=== PATIENT | male | born 1990 | race Two or more races ===

== ENCOUNTER 2016-12-25 09:18 | Emergency (ER) | payer SELFPAY ==
--- NOTE | 2016-12-25 09:43 | EDM.PDOC ---
ED HPI GENERAL MEDICAL PROBLEM - General Chief Complaint: General Stated Complaint: ENGROWN TOE NAIL Time Seen by Provider: 12/25/16 09:42 Source of Information: Reports: Patient - History of Present Illness INITIAL COMMENTS - FREE TEXT/NARRATIVE: HISTORY AND PHYSICAL: History of present illness: Patient presents with infected ingrown toenail on the right great toe Unable to express exudate with minimal pressure, exudate is cultured No fever nausea vomiting chills sweats Review of systems: As per history of present illness and below otherwise all systems reviewed and negative. Past medical history: As per history of present illness and as reviewed below otherwise noncontributory. Surgical history: As per history of present illness and as reviewed below otherwise noncontributory. Social history: No reported history of drug or alcohol abuse. Family history: As per history of present illness and as reviewed below otherwise noncontributory. Physical exam: HEENT: Atraumatic, normocephalic, pupils reactive, negative for conjunctival pallor or scleral icterus, mucous membranes moist, throat clear, neck supple, nontender, trachea midline. Lungs: Clear to auscultation, breath sounds equal bilaterally, chest nontender. Heart: S1S2, regular, negative for clicks, rubs, or JVD. Abdomen: Soft, nondistended, nontender. Negative for masses or hepatosplenomegaly. Negative for costovertebral tenderness. Pelvis: Stable nontender. Genitourinary: Deferred. Rectal: Deferred. Extremities: Atraumatic, negative for cords or calf pain. Neurovascular unremarkable. Neuro: Awake, alert, oriented. Cranial nerves II through XII unremarkable. Cerebellum unremarkable. Motor and sensory unremarkable throughout. Exam nonfocal. Right foot unaffected above the ankle obvious ingrown toenail lateral border able to express exudate or redness moderate tenderness entire limb neurovascularly intact Diagnostics: []1 culture Therapeutics: []Gram Rocephin IM Bactrim double strength by mouth twice a day #20 no refill Follow-up podiatry ER referral provided to Dr. Ramirez Impression: []Infected ingrown right toenail Definitive disposition and diagnosis as appropriate pending reevaluation and review of above. Right 1-Hallux Pain Score (Numeric/FACES): 7 - Related Data Allergies Allergy/AdvReac Type Severity Reaction Status Date / Time No Known Allergies Allergy Verified 12/25/16 09:30 Home Meds: Home Meds . [No Known Home Meds] 12/25/16 [History] ED ROS GENERAL - Review of Systems Review Of Systems: ROS reveals no pertinent complaints other than HPI. ED EXAM, GENERAL - Physical Exam Exam: See Below Course - Vital Signs Last Recorded V/S: Last Vital Signs Temp 36.2 C 12/25/16 09:31 Pulse 90 12/25/16 09:31 Resp 16 12/25/16 09:31 BP 148/90 H 12/25/16 09:31 Pulse Ox 99 12/25/16 09:31 - Orders/Labs/Meds Orders: Active Orders 24 hr Category Date Time Status CULTURE WOUND [RM] Stat Lab 12/25/16 09:42 Uncollected cefTRIAXone [Rocephin] 1,000 mg Med 12/25/16 09:44 Ordered Lidocaine 1% [Xylocaine-MPF 1%] 4 ml IM ONETIME Departure - Departure Time of Disposition: 09:44 Disposition: Home, Self-Care 01 Condition: Good Clinical Impression: Ingrown toenail - Discharge Information Forms: ED Department Discharge Additional Instructions: Epsom salts soaks 2-3 times daily Medication as prescribed Continue with the open toed shoes, Follow-up with podiatry Dr. Ramirez ER referral provided Follow-up with primary care in the interim as needed [facility] [address] [place] [address] The following information is given to patients seen in the emergency department who are being discharged to home. This information is to outline your options for follow-up care. We provide all patients seen in our emergency department with a follow-up referral. The need for follow-up, as well as the timing and circumstances, are variable depending upon the specifics of your emergency department visit. If you don't have a primary care physician on staff, we will provide you with a referral. We always advise you to contact your personal physician following an emergency department visit to inform them of the circumstance of the visit and for follow-up with them and/or the need for any referrals to a consulting specialist. The emergency department will also refer you to a specialist when appropriate. This referral assures that you have the opportunity for follow-up care with a specialist. All of these measure are taken in an effort to provide you with optimal care, which includes your follow-up. Under all circumstances we always encourage you to contact your private physician who remains a resource for coordinating your care. When calling for follow-up care, please make the office aware that this follow-up is from your recent emergency room visit. If for any reason you are refused follow-up, please contact the [facility] emergency department at and asked to speak to the emergency department charge nurse. - My Orders Last 24 Hours: My Active Orders 12/25/16 09:42 CULTURE WOUND [RM] Stat 12/25/16 09:44 cefTRIAXone [Rocephin] 1,000 mg Lidocaine 1% [Xylocaine-MPF 1%] 4 ml IM ONETIME - Assessment/Plan Last 24 Hours: My Active Orders 12/25/16 09:42 CULTURE WOUND [RM] Stat 12/25/16 09:44 cefTRIAXone [Rocephin] 1,000 mg Lidocaine 1% [Xylocaine-MPF 1%] 4 ml IM ONETIME
[2016-12-25] MEDS ORDERED: cefTRIAXone 1,000 MG in Lidocaine 1% 4 ML IM ONE (09:44)
[2016-12-25 10:16] VITALS: BP 145/76
== END 2016-12-25 10:07 | disposition home or self-care (01) ==
LOC: MW.ED 09:18
DX: L60.0 Ingrowing nail (principal)
CPT/HCPCS: 87070; 96372; 99283; J0696; 87077; 87186

== ENCOUNTER 2017-07-03 12:42 | Emergency (ER) | payer SELFPAY ==
[2017-07-03] MEDS ORDERED: Diphtheria,Pertussis(Acell),Tetanus Vaccine 0.5 ML Syringe IM ONE (13:29)
[2017-07-03] MEDS ORDERED: Bacitracin Oint 1 GM U/D Packet TOP ONE (13:29)
[2017-07-03 13:31] VITALS: BP 137/77
--- NOTE | 2017-07-03 13:35 | EDM.PDOC ---
ED HPI GENERAL MEDICAL PROBLEM - General Chief Complaint: Lower Extremity Injury/Pain Stated Complaint: RIGHT FOOT PAIN Time Seen by Provider: 07/03/17 13:23 - History of Present Illness INITIAL COMMENTS - FREE TEXT/NARRATIVE: HISTORY AND PHYSICAL: History of present illness: The patient is a 26-year-old male with no stated medical problems who slipped and fell onto his right lower leg and is here for complaints of pain to the area. He did not his head pass out or black out and has no head neck or back pain and no other extremity complaints. His foot and ankle knee thigh and hip on the right side are without tenderness and he is only complaining of pain at the lateral aspect of the soft tissue of the right tib-fib area. He has a scrape to the anterior surface of the skin which she says is new and his last tetanus shot was less than a year ago. He did not taking any medications prior to coming here nor does he want any. Review of systems: As per history of present illness and below otherwise all systems reviewed and negative. Past medical history: As per history of present illness and as reviewed below otherwise noncontributory. Surgical history: As per history of present illness and as reviewed below otherwise noncontributory. Social history: No reported history of drug or alcohol abuse. Family history: As per history of present illness and as reviewed below otherwise noncontributory. Physical exam: Gen.: Well-developed well-nourished man who is nontoxic and vital signs of been reviewed by me. Patient ambulated into the ED without assistance or distress. HEENT: Atraumatic, normocephalic, negative for conjunctival pallor or scleral icterus, mucous membranes moist, throat clear, neck supple, nontender, trachea midline. Lungs: Clear to auscultation, breath sounds equal bilaterally, chest nontender. Heart: S1S2, regular rate and rhythm no overt murmurs Abdomen: Soft, nondistended, nontender. NABS. Pelvis: Stable nontender. No lateral hip tenderness on the right Genitourinary: Deferred. Rectal: Deferred. Extremities: Atraumatic with full range of motion of all extremities with the exception of the right soft tissue lower leg where there is a superficial scrape in a vertical linear fashion seen on the anterior aspect of the tibia without swelling drainage or skin skin separation, there is no palpable bony tenderness or crepitus appreciated in this tibial area and there is tenderness at palpation of the lateral soft tissue region of the leg with some minor ecchymosis seen. The calf itself is not swollen in the legs are, negative for cords or calf pain. There is no distal ankle discomfort or bony deformities and is no proximal knee thigh or hip tenderness or deformities Neurovascular unremarkable. Neuro: Awake, alert, oriented. Cranial nerves II through XII unremarkable. Cerebellum unremarkable. Motor and sensory unremarkable throughout. Exam nonfocal. Diagnostics: X-ray right tib-fib Therapeutics: Patient declined Motrin and ice pack Cleansing and bacitracin to the scrape on the leg Impression: Right lower leg contusion status post fall Definitive disposition and diagnosis as appropriate pending reevaluation and review of above. Right Leg Pain Score (Numeric/FACES): 5 - Related Data Allergies Allergy/AdvReac Type Severity Reaction Status Date / Time No Known Allergies Allergy Verified 07/03/17 13:32 Home Meds: Home Meds . [No Known Home Meds] 12/25/16 [History] Past Medical History - Past Health History Medical/Surgical History: Denies Medical/Surgical History Social & Family History - Family History Family Medical History: Noncontributory - Tobacco Use Smoking Status *Q: Never Smoker - Caffeine Use Caffeine Use: Reports: Energy Drinks Caffeine Use Comment: rare - Recreational Drug Use Recreational Drug Use: No Review of Systems - Review of Systems Review Of Systems: ROS reveals no pertinent complaints other than HPI. ED EXAM, GENERAL - Physical Exam Exam: See Below (See dictation) Course - Vital Signs Last Recorded V/S: Last Vital Signs Temp 36.8 C 07/03/17 13:27 Pulse 78 07/03/17 13:27 Resp 16 07/03/17 13:27 BP 137/77 07/03/17 13:27 Pulse Ox 96 07/03/17 13:27 - Orders/Labs/Meds Orders: Active Orders 24 hr Category Date Time Status Communication Order [RC] STAT Care 07/03/17 13:29 Active Meds: Medications Discontinued Medications Generic Name Dose Route Start Last Admin Trade Name Freq PRN Reason Stop Dose Admin Bacitracin 1 dose 07/03/17 13:29 Bacitracin Oint 1 Gm TOP 07/03/17 13:30 ONETIME ONE Diphtheria/Tetanus/Acell Pertussis 0.5 ml 07/03/17 13:29 Adacel IM 07/03/17 13:30 .ONCE ONE Departure - Departure Time of Disposition: 14:20 Disposition: Home, Self-Care 01 Condition: Good Clinical Impression: Contusion of right lower leg Qualifiers: Encounter type: initial encounter Qualified Code(s): S80.11XA - Contusion of right lower leg, initial encounter - Discharge Information Referrals: PCP,None [Primary Care Provider] - Forms: ED Department Discharge Additional Instructions: The following information is given to patients seen in the emergency department who are being discharged to home. This information is to outline your options for follow-up care. We provide all patients seen in our emergency department with a follow-up referral. The need for follow-up, as well as the timing and circumstances, are variable depending upon the specifics of your emergency department visit. If you don't have a primary care physician on staff, we will provide you with a referral. We always advise you to contact your personal physician following an emergency department visit to inform them of the circumstance of the visit and for follow-up with them and/or the need for any referrals to a consulting specialist. The emergency department will also refer you to a specialist when appropriate. This referral assures that you have the opportunity for followup care with a specialist. All of these measure are taken in an effort to provide you with optimal care, which includes your followup. Under all circumstances we always encourage you to contact your private physician who remains a resource for coordinating your care. When calling for followup care, please make the office aware that this follow-up is from your recent emergency room visit. If for any reason you are refused follow-up, please contact the [facility] emergency department at and ask to speak to the emergency department charge nurse. [facility] Primary care- Internal Medicine and Family [facility] [address] [place] [id number] [facility] Specialty Care--Orthopedic clinic Professional Building [address] [place] [id number] Use ice to area for swelling and pain and use [id number] Tylenol or ibuprofen for pain. Keep the skin scraped clean and dry and apply bacitracin for the next few days. Please call for follow-up with one of our clinic providers using resources given to above and return to ER as needed and as discussed - My Orders Last 24 Hours: My Active Orders 07/03/17 13:29 Communication Order [RC] STAT - Assessment/Plan Last 24 Hours: My Active Orders 07/03/17 13:29 Communication Order [RC] STAT
--- NOTE | 2017-07-03 14:03 | CR ---
Right tibia and fibula Clinical history: Pain Comparison: None Findings: The bones are normally mineralized and normal in contour and straight no evidence of fractu re and there is no arthropathy of the knee or ankle identified on these 2 images. Impression: No significant abnormalities
== END 2017-07-03 14:39 | disposition home or self-care (01) ==
LOC: MW.ED 12:42
DX: S80.11XA Contusion of right lower leg, initial encounter (principal); W01.0XXA Fall on same level from slipping, tripping and stumbling without subsequent striking against object, initial encounter
CPT/HCPCS: 73590-26-RT; 73590-RT; 99283; 99284

== ENCOUNTER 2018-08-27 15:26 | Emergency (ER) | payer SELFPAY ==
--- NOTE | 2018-08-27 15:37 | EDM.PDOC ---
ED HPI GENERAL MEDICAL PROBLEM - General Chief Complaint: Back Pain or Injury Stated Complaint: BACK PIAN Time Seen by Provider: 08/27/18 15:32 - History of Present Illness INITIAL COMMENTS - FREE TEXT/NARRATIVE: HISTORY AND PHYSICAL: History of present illness: Patient 27-year-old male sensory concern of low back pain is worse with movement. There is been no direct trauma he denies numbness weakness incontinence or retention bowel bladder denies other concern Review of systems: As per history of present illness and below otherwise all systems reviewed and negative. Past medical history: As per history of present illness and as reviewed below otherwise noncontributory. Surgical history: As per history of present illness and as reviewed below otherwise noncontributory. Social history: No reported history of drug or alcohol abuse. Family history: As per history of present illness and as reviewed below otherwise noncontributory. Physical exam: HEENT: Atraumatic, normocephalic, pupils reactive, negative for conjunctival pallor or scleral icterus, mucous membranes moist, throat clear, neck supple, nontender, trachea midline. Lungs: Clear to auscultation, breath sounds equal bilaterally, chest nontender. Heart: S1S2, regular, negative for clicks, rubs, or JVD. Abdomen: Soft, nondistended, nontender. Negative for masses or hepatosplenomegaly. Negative for costovertebral tenderness. Pelvis: Stable nontender. Genitourinary: Deferred. Rectal: Deferred. Extremities: Atraumatic, negative for cords or calf pain. Neurovascular unremarkable. Neuro: Awake, alert, oriented. Cranial nerves II through XII unremarkable. Cerebellum unremarkable. Motor and sensory unremarkable throughout. Exam nonfocal. Back: Patient has tenderness in the paravertebral region at the level lumbar spine no vertebral body or point tenderness deep tendon reflexes are normal there's no motor or sensory deficits Diagnostics: None Therapeutics: None Impression: #1 low back pain Definitive disposition and diagnosis as appropriate pending reevaluation and review of above. - Related Data Allergies Allergy/AdvReac Type Severity Reaction Status Date / Time No Known Allergies Allergy Verified 07/03/17 13:32 Home Meds: Home Meds . [No Known Home Meds] 12/25/16 [History] Past Medical History - Past Health History Medical/Surgical History: Denies Medical/Surgical History Social & Family History - Family History Family Medical History: Noncontributory - Caffeine Use Caffeine Use: Reports: Energy Drinks Caffeine Use Comment: rare ED ROS GENERAL - Review of Systems Review Of Systems: ROS reveals no pertinent complaints other than HPI. ED EXAM, GENERAL - Physical Exam Exam: See Below (See dictation) Departure - Departure Time of Disposition: 15:36 Disposition: Home, Self-Care 01 Condition: Good Clinical Impression: Low back pain - Discharge Information Referrals: PCP,Unknown [Primary Care Provider] - Additional Instructions: The following information is given to patients seen in the emergency department who are being discharged to home. This information is to outline your options for follow-up care. We provide all patients seen in our emergency department with a follow-up referral. The need for follow-up, as well as the timing and circumstances, are variable depending upon the specifics of your emergency department visit. If you don't have a primary care physician on staff, we will provide you with a referral. We always advise you to contact your personal physician following an emergency department visit to inform them of the circumstance of the visit and for follow-up with them and/or the need for any referrals to a consulting specialist. The emergency department will also refer you to a specialist when appropriate. This referral assures that you have the opportunity for followup care with a specialist. All of these measure are taken in an effort to provide you with optimal care, which includes your followup. Under all circumstances we always encourage you to contact your private physician who remains a resource for coordinating your care. When calling for followup care, please make the office aware that this follow-up is from your recent emergency room visit. If for any reason you are refused follow-up, please contact the [facility] emergency department at and asked to speak to the emergency department charge nurse. [facility] Primary Care [address] [place] [id number] Diclofenac Ultram as prescribed follow-up primary care return as needed as discussed
[2018-08-27 15:42] VITALS: BP 147/86
== END 2018-08-27 15:53 | disposition home or self-care (01) ==
LOC: MW.ED 15:26
DX: M54.5 Low back pain (principal)
CPT/HCPCS: 99283

== ENCOUNTER 2018-09-30 20:51 | Emergency (ER) | payer SELFPAY ==
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
--- NOTE | 2018-09-30 21:47 | CR ---
INDICATION: Injury. TECHNIQUE: Left foot, two views COMPARISON: None FINDINGS: Bones: Alignment is normal. No acute fractures or aggressive osseous lesions seen. Joint spaces: The visualized hindfoot, midfoot, and forefoot joints are unremarkable in appearance. Soft tissues: Unremarkable. No radiopaque foreign bodies are noted. IMPRESSION: 1. No acute osseous injuries are identified. Dictated by Abel Gamble MD @ 09/30/2018 9:45:16 PM Dictated by: Abel Gamble MD @ 09/30/2018 21:45:21 (Electronically Signed)
--- NOTE | 2018-09-30 21:55 | CR ---
INDICATION: Left ankle injury. TECHNIQUE: Three views of the left ankle. COMPARISON: Today`s left foot x-rays. FINDINGS: Very mild soft tissue swelling over the lateral malleolus. No fracture or ankle joint space narrowing. Abnormal bony beaking at the lateral talocalcaneal articulation suggesting coalition. Subtalar joint markedly narrowed posteriorly as seen on the lateral view. IMPRESSION: 1. Suspected mild lateral ankle sprain. 2. 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 Dictated by Juancarlos Ozuna MD @ Sep 30 2018 9:46PM Signed by Dr. Juancarlos Ozuna @ Sep 30 2018 9:53PM
[2018-09-30] MEDS ORDERED: Ketorolac 60 MG/2 ML SDV IM ONE (22:16)
--- NOTE | 2018-09-30 23:19 | CT ---
INDICATION: Pain. COMPARISON: Plain film same date. TECHNIQUE: Noncontrast images centered on the left ankle with axial, coronal and sagittal formats. FINDINGS: Well corticated relatively large wedge-shaped ossicle at the plantar lateral margin of the talus along the anterior lateral margin of the subtalar joint. No degeneration of the joint. No bony continuity with the main body of the talus. Talar dome is intact and the ankle mortise is uniform. No joint effusion. Tiny well corticated appearing ossicle in the dorsal medial margin of the calcaneocuboid joint measures about 3 mm (image 32 series 204). No degenerative change of the joint. Remainder of the midfoot looks unremarkable. 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 No subtalar arthrosis. No acute injury finding. Please note that all CT scans at this facility use dose modulation, iterative reconstruction, and/or weight-based dosing when appropriate to reduce radiation dose to as low as reasonably achievable. Dictated by Martin Traore MD @ Oct 01 2018 8:19AM Signed by Dr. Martin Traore @ Oct 01 2018 8:28AM
[2018-09-30 23:47] VITALS: BP 156/107
== END 2018-09-30 23:44 | disposition home or self-care (01) ==
LOC: MW.ED 20:51
DX: S99.912A Unspecified injury of left ankle, initial encounter (principal); X50.9XXA Other and unspecified overexertion or strenuous movements or postures, initial encounter
CPT/HCPCS: 73610; 73620; 73700; 96372; 99283; J1885